=== PATIENT | female | born 1945 | race Caucasian/White ===

== ENCOUNTER 2017-02-05 13:39 | Emergency (ER) | payer MEDICARE ==
[~2017-02-05] VITALS: Ht 162.6 cm; Wt 87.5 kg
[2017-02-05 13:47] VITALS: BP 167/79
[2017-02-05] MEDS ORDERED: DIPH,PERTUSS(ACELL),TET VAC/PF 0.5 ML IM-VACC ONE ×2 (14:19→14:30)
== END 2017-02-05 14:48 | disposition home or self-care (01) ==
LOC: ED 14:42
DX: L03.011 Cellulitis of right finger (principal); W57.XXXA Bitten or stung by nonvenomous insect and other nonvenomous arthropods, initial encounter; Y93.89 Activity, other specified; Y92.89 Other specified places as the place of occurrence of the external cause; Y99.8 Other external cause status
CPT/HCPCS: 90471; 90715